=== PATIENT | female | born 1965 | race African-American/Black ===

== ENCOUNTER 2017-01-19 09:54 | Emergency (ER) | payer MEDICAID ==
[~2017-01-19] VITALS: Ht 165.1 cm; Wt 107.0 kg
[2017-01-19 10:46] LABS: BASOPHILS % 0.5 % (0.0-2.0); HEMATOCRIT. 38.4 % (36.0-48.0); HEMOGLOBIN. 13.1 g/dL (12.0-16.0); LYMPHOCYTES % 25.1 % (20.0-50.0); MEAN CORPUSCULAR HEMOGLOBIN 30.3 pg (28.0-32.0); MEAN CORPUSCULAR VOLUME 88.8 fL (81.0-99.0); MEAN PLATELET VOLUME 10.1 fl (7.4-10.4); MONOCYTES % 5.9 % (2.0-8.0); NEUTROPHILS % 66.5 % (40.0-76.0); PLATELET 176 x1000/uL (130-400); RED BLOOD CELL COUNT 4.33 mill/uL (4.2-5.4); RED CELL DISTRIBUTION WIDTH 13.1 % (11.6-14.6)
[2017-01-19 10:55] LABS: INR 1.1; PROTHROMBIN TIME 11.1 sec (9.4-11.6)
[2017-01-19 11:05] LABS: CARBON DIOXIDE 31 mEq/L (21-32); CHLORIDE 99 mEq/L (98-107)
[2017-01-19 11:06] LABS: TROPONIN I < 0.02 ng/mL (0.00-0.04)
[2017-01-19] MEDS ORDERED: KETOROLAC 30MG/ML VIAL ONE (11:25)
[2017-01-19] MEDS ORDERED: KETOROLAC 15MG/ML VIAL IV ONE (11:30)
[2017-01-19 12:00] VITALS: BP 154/98
== END 2017-01-19 12:23 | disposition home or self-care (01) ==
LOC: ER 11:11
DX: F41.9 Anxiety disorder, unspecified (principal); R07.89 Other chest pain; I10 Essential (primary) hypertension; M19.90 Unspecified osteoarthritis, unspecified site; J45.909 Unspecified asthma, uncomplicated; E11.9 Type 2 diabetes mellitus without complications; E66.9 Obesity, unspecified; Z59.0 Homelessness; Z88.6 Allergy status to analgesic agent; Z68.39 Body mass index [BMI] 39.0-39.9, adult
CPT/HCPCS: 36415; 71010; 80053; 83880; 84484; 85025; 85610; 93005; 96374; 99285; J1885; Z7610

== ENCOUNTER 2017-02-20 09:30 | Inpatient (IN) | payer MEDICAID ==
[~2017-02-20] VITALS: Ht 162.6 cm; Wt 102.2 kg
[2017-02-20] MEDS ORDERED: LABETALOL HCL 20MG/4ML CARPUJECT IV ONE (12:30)
[2017-02-20] MEDS ORDERED: ASPIRIN 81MG TABLET PO ONE (12:30)
[2017-02-20] MEDS ORDERED: NITROGLYCERIN OINT 1GM/INCH UDPKT TD ONE (12:30)
[2017-02-20] MEDS ORDERED: MAGNESIUM 2 G PREMIX 50 ML IV ONE (12:30)
[2017-02-20 12:53] LABS: BASOPHILS % 0.7 % (0.0-2.0); EOSINOPHILS % 2.2 % (0.0-5.0); HEMATOCRIT. 40.6 % (36.0-48.0); HEMOGLOBIN. 13.5 g/dL (12.0-16.0); LYMPHOCYTES % 32.1 % (20.0-50.0); MEAN CORPUSCULAR VOLUME 90.4 fL (81.0-99.0); MONOCYTES % 6.1 % (2.0-8.0); NEUTROPHILS % 58.9 % (40.0-76.0); PLATELET 222 x1000/uL (130-400); RED BLOOD CELL COUNT 4.49 mill/uL (4.2-5.4); RED CELL DISTRIBUTION WIDTH 13.8 % (11.6-14.6)
[2017-02-20 13:01] LABS: INR 1.1; PROTHROMBIN TIME 10.9 sec (9.4-11.6)
[2017-02-20 13:12] LABS: CARBON DIOXIDE 31 mEq/L (21-32); CHLORIDE 103 mEq/L (98-107); ETHANOL BLOOD < 10 mg/dL
[2017-02-20 13:14] LABS: TROPONIN I < 0.02 ng/mL (0.00-0.04)
[2017-02-20 14:38] LABS: KETONES URINE NEGATIVE (NEGATIVE); LEUKOCYTE ESTERASE URINE 3+ (NEGATIVE); NITRITE URINE NEGATIVE (NEGATIVE); OCCULT BLOOD URINE 1+ (NEGATIVE); PROTEIN URINE NEGATIVE (NEGATIVE); SPECIFIC GRAVITY URINE 1.015 (1.005-1.030); UROBILINOGEN URINE 0.2 E.U./dL (0.2-1.0)
[2017-02-20 14:41] LABS: CLARITY URINE CLOUDY (CLEAR); COLOR URINE YELLOW (YELLOW)
[2017-02-20 15:01] LABS: *AMPHETAMINES SCREEN URINE NEGATIVE (NEGATIVE); *BARBITURATES SCREEN URINE NEGATIVE (NEGATIVE); *BENZODIAZEPINES SCREEN URINE NEGATIVE (NEGATIVE); *COCAINE SCREEN URINE NEGATIVE (NEGATIVE); METHADONE URINE SCREEN NEGATIVE (NEGATIVE); PHENCYCLIDINE URINE SCREEN NEGATIVE (NEGATIVE)
[2017-02-20 15:02] LABS: CANNABINOID URINE SCREEN PRESUMTIVE POSITIVE (NEGATIVE); OPIATES URINE SCREEN PRESUMTIVE POSITIVE (NEGATIVE)
[2017-02-20 22:10] VITALS: BP 193/105
[2017-02-20 22:20] VITALS: BP 193/105
[2017-02-20] MEDS ORDERED: LANTUSUD SUBCUT (22:27)
[2017-02-20] MEDS ORDERED: GLIP10TA10 PO (22:27)
[2017-02-20] MEDS ORDERED: AMLO10TA4 PO (22:27)
[2017-02-20] MEDS ORDERED: CLONIDINE 0.1MG TABLET PO PRN (23:15)
[2017-02-20] MEDS ORDERED: DEXTROSE 50% WATER 50ML SYRINGE IV PRN (23:30)
[2017-02-20] MEDS ORDERED: FLUCONAZOLE 200MG TABLET PO NR (23:30)
[2017-02-20] MEDS: MORPHINE SULFATE 4 MG/ML CPJ (NOT FOR IM USE) IV PRN (23:56)
[2017-02-21] VITALS: BP 158/88
[2017-02-21 04:00] VITALS: BP 134/78
[2017-02-21] MEDS: BLOOD SUGAR DIAGNOSTIC STRIP TEST SCH ×4 (06:40→21:00)
[2017-02-21] MEDS: INSULIN LISPRO 100 UNITS/ML SUBCUT SCH ×4 (06:42→22:12)
[2017-02-21] MEDS: MORPHINE SULFATE 4 MG/ML CPJ (NOT FOR IM USE) IV PRN ×3 (06:45→21:56)
[2017-02-21 07:53] LABS: BASOPHILS % 0.4 % (0.0-2.0); EOSINOPHILS % 1.5 % (0.0-5.0); HEMATOCRIT. 35.6 % (36.0-48.0); LYMPHOCYTES % 24.8 % (20.0-50.0); MEAN CORPUSCULAR HEMOGLOBIN 30.5 pg (28.0-32.0); MEAN CORPUSCULAR VOLUME 90.2 fL (81.0-99.0); MEAN PLATELET VOLUME 10.7 fl (7.4-10.4); MONOCYTES % 8.2 % (2.0-8.0); NEUTROPHILS % 65.1 % (40.0-76.0); PLATELET 202 x1000/uL (130-400); RED BLOOD CELL COUNT 3.94 mill/uL (4.2-5.4); RED CELL DISTRIBUTION WIDTH 13.7 % (11.6-14.6)
[2017-02-21 08:00] VITALS: BP 168/99
[2017-02-21] MEDS: ASPIRIN 325MG TABLET PO SCH (08:48)
[2017-02-21] MEDS: METOPROLOL TARTRATE 50MG TABLET PO SCH ×2 (08:49→20:49)
[2017-02-21] MEDS: ENOXAPARIN 30MG/0.3ML SYR SUBCUT SCH ×2 (08:49→20:49)
[2017-02-21] MEDS: AMLODIPINE 5MG TABLET PO SCH (08:49)
[2017-02-21 09:06] LABS: CARBON DIOXIDE 23 mEq/L (21-32); CHLORIDE 102 mEq/L (98-107); HDL CHOLESTEROL 48 mg/dL (40-59); LDL CHOLESTEROL 125 mg/dL (5-100); TROPONIN I < 0.02 ng/mL (0.00-0.04)
[2017-02-21 11:58] VITALS: BP 150/87
[2017-02-21] MEDS ORDERED: HYDROCODONE/ACETAMINOPHEN 5/325MG TABLET PO PRN (12:15)
[2017-02-21] MEDS: CEFTRIAXONE 1 G PREMIX 50 ML IV SCH (14:38)
[2017-02-21 20:00] VITALS: BP 145/76
[2017-02-21] MEDS ORDERED: ATORVASTATIN CALCIUM 40MG TABLET PO SCH (21:00)
[2017-02-21] MEDS ORDERED: INSULIN DETEMIR UD 100 UNITS/ML SYR SUBCUT SCH (22:00)
[2017-02-21] MEDS ORDERED: INSULIN GLARGINE UD 100 UNITS/ML SYR SUBCUT SCH ×2 (22:00)
[2017-02-22] VITALS: BP 135/78
[2017-02-22 04:00] VITALS: BP 130/77
[2017-02-22] MEDS: BLOOD SUGAR DIAGNOSTIC STRIP TEST SCH ×2 (06:13→11:46)
[2017-02-22] MEDS: INSULIN LISPRO 100 UNITS/ML SUBCUT SCH ×3 (06:17→12:12)
[2017-02-22 08:20] VITALS: BP 160/89
[2017-02-22] MEDS: ASPIRIN 325MG TABLET PO SCH (09:07)
[2017-02-22] MEDS: METOPROLOL TARTRATE 50MG TABLET PO SCH (09:08)
[2017-02-22] MEDS: AMLODIPINE 5MG TABLET PO SCH (09:09)
[2017-02-22] MEDS: ENOXAPARIN 30MG/0.3ML SYR SUBCUT SCH (09:09)
[2017-02-22] MEDS ORDERED: CEPH-569 PO (11:06)
[2017-02-22] MEDS ORDERED: METR250T PO (11:06)
[2017-02-22] MEDS ORDERED: LOSA50TA20 PO (11:06)
[2017-02-22] MEDS: CEFTRIAXONE 1 G PREMIX 50 ML IV SCH (14:16)
[2017-02-22 14:33] VITALS: BP 148/79
== END 2017-02-22 17:20 | disposition home or self-care (01) | DRG 531 ==
LOC: ER 10:36 → 5WST 13:30 → EDBEDREQ 13:33 → ENRESERV 19:37
PROVIDERS: ADMIT Internal Medicine; ATTEND Internal Medicine
DX: N76.0 Acute vaginitis (principal); E11.65 Type 2 diabetes mellitus with hyperglycemia; I10 Essential (primary) hypertension; N39.0 Urinary tract infection, site not specified; J45.909 Unspecified asthma, uncomplicated; M94.0 Chondrocostal junction syndrome [Tietze]; I16.0 Hypertensive urgency; B96.89 Other specified bacterial agents as the cause of diseases classified elsewhere; E66.9 Obesity, unspecified; F12.90 Cannabis use, unspecified, uncomplicated; E78.5 Hyperlipidemia, unspecified; Z60.2 Problems related to living alone; Z88.1 Allergy status to other antibiotic agents; Z88.8 Allergy status to other drugs, medicaments and biological substances; Z68.38 Body mass index [BMI] 38.0-38.9, adult
CPT/HCPCS: 36415; 70450; 71045; 80048; 80053; 80061; 80305; 81001; 81025; 82962; 83036; 83605; 83690; 83880; 84484; 85025; 85610; 87040; 87086; 87804; 93005; 93306; 96365; 96366; 99291; C1893; G0482; J0696; J1650; J1815; J2270; J3475; J3490